=== PATIENT | male | born 1995 | race Two or more races ===

== ENCOUNTER 2017-04-27 01:24 | Emergency (ER) | payer SELFPAY ==
--- NOTE | 2017-04-27 01:41 | EDM.PDOC ---
ED HPI GENERAL MEDICAL PROBLEM - General Chief Complaint: Upper Extremity Injury/Pain Stated Complaint: CUT ON MIDDLE FINGER- LEFT HAND Time Seen by Provider: 04/27/17 01:34 Source of Information: Reports: Patient History Limitations: Reports: No Limitations - History of Present Illness INITIAL COMMENTS - FREE TEXT/NARRATIVE: HISTORY AND PHYSICAL: History of present illness: [21-year-old male with no significant past history now presents to the emergency department after a left long finger injury. Patient was at home and while helping a friend badly pinched the tip of his left long finger. This caused severe pain and a laceration on the finger pad. Range of motion and use of the finger is limited by pain but patient is able to flex and extend all the joints of his finger. No other complaint specifically no hand or wrist pain. Patient states his tetanus is up-to-date and he does not have any antibiotic allergies.] Review of systems: As per history of present illness and below otherwise all systems reviewed and negative. Past medical history: As per history of present illness and as reviewed below otherwise noncontributory. Surgical history: As per history of present illness and as reviewed below otherwise noncontributory. Social history: No reported history of drug or alcohol abuse. Family history: As per history of present illness and as reviewed below otherwise noncontributory. Physical exam: Well-appearing patient no acute distress benign exam except 3 cm laceration serpentine with flap. No exposed bone. Positive bony tenderness distal finger nail bed and eponychial fold intact. Normal flexion and extension of all joints. Remainder of and uninjured HEENT: Normocephalic, atraumatic, pupils normal and symmetrical, supple neck, no meningismus, normal color Lungs: Normal and symmetrical chest wall excursion bilateral with no tachypnea or increased work of breathing, grossly normal chest exam Heart: No tachycardia in triage Abdomen: Normal-appearing, nondistended, no visible mass or asymmetry Pelvis: Normal-appearing Genitourinary: Deferred Rectal exam: Deferred Extremities: Atraumatic, normal use and range of motion, no visible evidence of gross neurovascular compromise Neuro: Awake, alert, oriented. Normal and appropriate mental status. Cranial nerves grossly unremarkable. Motor function normal. Nonfocal neurologic exam. Diagnostics: [X-ray left hand with positive tuft's fracture distal phalange middle finger interpreted by me. Interestingly, patient has radiopaque dirt under his fingernails] Therapeutics: [Suture repair by NICOLASA Lazo.: Digital block performed with 1% lidocaine after Betadine prep of digit. Good anesthesia. Wound irrigated extensively with high volume tap water irrigation with Hibiclens scrub of entire digit. Debridement of devitalized tissue and revision of irregular wound margins by me. Wound closed primarily with 8 interrupted 4-0 Prolene sutures with good approximation and hemostasis. Patient tolerated well without complication.] Impression: [Laceration left long finger Plan: [Primary repair of complex wound after debridement. Antibiotic prophylaxis initiated with Ancef IM. Keflex will be prescribed. [place] given by mouth AILYN. Patient will take ibuprofen every 6 hours as well as Tylenol and he feels this will control his pain well. Positive tuft's fracture. Patient aware to follow- up with ECP in 2 days for wound check in 10 days for suture removal. No further workup or treatment indicated. Patient agrees with outpatient follow-up and strict return precautions given.] Definitive disposition and diagnosis as appropriate pending reevaluation and review of above. Left 3-Middle finger Pain Score (Numeric/FACES): 8 - Related Data Allergies Allergy/AdvReac Type Severity Reaction Status Date / Time No Known Allergies Allergy Verified 04/27/17 01:39 Home Meds: Home Meds Cephalexin [Keflex] 500 mg PO QID 5 Days capsule 04/27/17 [Rx] Review of Systems - Review of Systems Review Of Systems: See Below (History of present illness) ED EXAM, GENERAL - Physical Exam Exam: See Below (History of present illness) Course - Vital Signs Last Recorded V/S: Last Vital Signs Temp 36.4 C 04/27/17 01:28 Pulse 75 04/27/17 01:28 Resp 18 04/27/17 01:28 BP 140/56 L 04/27/17 01:28 Pulse Ox 95 04/27/17 01:28 - Orders/Labs/Meds Orders: Active Orders 24 hr Category Date Time Status Fingers Third Digit Lt F2 [CR] Stat Exams 04/27/17 01:41 Ordered Meds: Medications Discontinued Medications Generic Name Dose Route Start Last Admin Trade Name Freq PRN Reason Stop Dose Admin Hydrocodone Bitart/Acetaminophen 1 tab 04/27/17 03:57 04/27/17 04:09 [place] 325-5 Mg PO 04/27/17 03:58 1 tab ONETIME ONE Administration Bacitracin 1 dose 04/27/17 02:25 04/27/17 02:29 Bacitracin Oint 1 Gm TOP 04/27/17 02:26 1 dose ONETIME ONE Administration Cefazolin Sodium 1 gm 04/27/17 04:07 Ancef IM 04/27/17 04:08 ONETIME ONE Sterile Water Confirm 04/27/17 04:11 Sterile Water For Injection Administered 04/27/17 04:12 Dose 20 mls @ as directed .ROUTE .STK-MED ONE Lidocaine HCl 20 ml 04/27/17 02:25 04/27/17 02:28 Xylocaine 1% INJECT 04/27/17 02:26 20 ml ONETIME ONE Administration Sterile Water 2.5 ml 04/27/17 04:15 Sterile Water For Injection INJECT 04/27/17 04:16 ONETIME ONE Departure - Departure Time of Disposition: 04:07 Disposition: Home, Self-Care 01 Condition: Good Clinical Impression: Finger laceration, Closed fracture of tuft of distal phalanx of finger - Discharge Information Prescriptions: Cephalexin [Keflex] 500 mg PO QID 5 Days capsule Instructions: Finger Fracture, [id number], Crush Injury, Fingers or Toes, [id number] Referrals: PCP,None [Primary Care Provider] - Forms: ED Department Discharge Additional Instructions: As you saw on your x-ray, the tip of your finger bone is broken. Your laceration has been repaired with removal sutures. Follow-up with your Dr. in 2 days for a wound check and return in 10 days for suture removal. Finish antibiotics as prescribed, one Keflex 4 times a day for 5 days. You described that your tetanus is up-to-date so just verify this with your primary care doctor. Take ibuprofen 800 mg every 6 hours and Tylenol every 4 hours as needed for pain. Return for signs of infection. - My Orders Last 24 Hours: My Active Orders 04/27/17 01:41 Fingers Third Digit Lt F2 [CR] Stat - Assessment/Plan Last 24 Hours: My Active Orders 04/27/17 01:41 Fingers Third Digit Lt F2 [CR] Stat
[2017-04-27 01:43] VITALS: BP 140/56
[2017-04-27] MEDS ORDERED: Lidocaine 1% 20 ML MDV INJECT ONE (02:25)
[2017-04-27] MEDS ORDERED: Bacitracin Oint 1 GM U/D Packet TOP ONE (02:25)
[2017-04-27] MEDS ORDERED: Acetaminophen/HYDROcodone 325-5 MG Tab PO ONE (03:57)
[2017-04-27] MEDS ORDERED: ceFAZolin 1 GM Vial IM ONE (04:07)
[2017-04-27] MEDS ORDERED: Water For Injection, Sterile 20 ML ONE (04:11)
[2017-04-27] MEDS ORDERED: Water For Injection, Sterile 20 ML SDV INJECT ONE (04:15)
--- NOTE | 2017-04-27 16:58 | CR ---
EXAM DATE: 04/27/17 PATIENT'S AGE: 21 Patient: CAL OTERO Facility: [place], [place] Site . Site : 1995 Study: XRay Extremity Left [id number]/3/2017 1:58:04 AM Ordering Physician: Sandor Dangelo Final Report: HISTORY: Injury the tuft of 3rd finger. FINDINGS/IMPRESSION: Two views of the left there is demonstrates slightly comminuted nearly nondisplaced fracture of the distal tuft of the 3rd finger. Dictated by Rosalia López MD @ 04/27/2017 2:22:51 AM Dictated by: Rosalia López MD @ 04/27/2017 02:22:56 (Electronic Signature) Report Signed by Proxy. [facility]Pretty
== END 2017-04-27 04:45 | disposition home or self-care (01) ==
LOC: MW.ED 01:24
DX: S62.633A Displaced fracture of distal phalanx of left middle finger, initial encounter for closed fracture (principal); S61.213A Laceration without foreign body of left middle finger without damage to nail, initial encounter; W23.0XXA Caught, crushed, jammed, or pinched between moving objects, initial encounter; Y92.009 Unspecified place in unspecified non-institutional (private) residence as the place of occurrence of the external cause
CPT/HCPCS: 12002; 73140; 96372; 99283; A9270; J0690; 99282

== ENCOUNTER 2017-05-07 19:04 | Emergency (ER) | payer SELFPAY | END 2017-05-07 19:30 | disposition home or self-care (01) | LOC: MW.ED 19:04 | DX: Z53.21 Procedure and treatment not carried out due to patient leaving prior to being seen by health care provider (principal) ==